=== PATIENT | male | born 1960 | race Caucasian/White ===

== ENCOUNTER 2016-12-23 15:29 | Emergency (ER) | payer BC ==
[~2016-12-23] VITALS: Ht 177.8 cm; Wt 121.0 kg
[2016-12-23 15:54] VITALS: BP 136/67; PULSE 83; RESP 16; TEMP 99.5; O2SAT 98
[2016-12-23] MEDS ORDERED: SODIUM CHLORIDE 0.9% FLUSH 5 ML FLUSH IVF PRN (16:15)
[2016-12-23] MEDS ORDERED: TETANUS/DIPHTHERIA TOXOID ADULT 0.5 ML VIAL IM ONE (16:15)
--- NOTE | 2016-12-23 16:15 | PD ---
HPI . Syncope Chief Complaint: Syncope/Near-Syncope Time Seen by Provider: 15:57 Travel History International Travel<30 days: No Contact w/Intl Traveler<30days: No Traveled to known affect area: No History of Present Illness HPI Patient presents to us from an urgent care center for evaluation of syncope. Patient states that he had the onset of cold symptoms about 3 days ago. He has nasal congestion. He states that he had a paroxysmal of coughing today which was followed by a syncopal event. He fell approximately 3 feet onto his head. When he came to, he discovered that he had an injury to his head and epistaxis. He had a bruise around his left eye. He states that he later called his daughter who is a nurse who instructed him to seek medical care. He subsequently went to urgent care and was referred to us for more extensive evaluation. The patient denies any chest pain or shortness of breath. He has not had any blurred vision or nausea since the injury. He states that his head feels sore. He does not know the date of his last tetanus shot. PFSH Past Medical History Depression: Yes Cardiovascular Problems: Yes (HTN) Hypertension: Yes Social History Tobacco Use: No Allergies-Medications (Allergen,Severity, Reaction): Coded Allergies: No Known Allergies (Unverified , 12/23/16) Reported Meds & Prescriptions Reported Meds & Active Scripts Active Reported Celexa (Citalopram Hydrobromide) 20 Mg Tab 20 Mg PO DAILY Lisinopril 5 Mg Tab 5 Mg PO DAILY Review of Systems Except as stated in HPI: all other systems reviewed are Neg General / Constitutional: No: Fever, Chills Eyes: No: Blurred Vision, Drainage, Redness HENT: Positive: Lightheadedness, Rhinorrhea, Congestion, Nosebleed Cardiovascular: Positive: Syncope, No: Chest Pain or Discomfort Respiratory: Positive: Cough, No: Shortness of Breath Gastrointestinal: No: Nausea, Vomiting, Diarrhea Skin: No Rash Neurologic: Positive: Syncope, Headache, No: Focal Abnormalities Physical Exam Narrative GENERAL: Healthy-appearing man who is in no acute distress. SKIN: Warm and dry. He has a large abrasion/skin tear on the vertex of the scalp. HEAD: Atraumatic. Normocephalic. No significant swelling of the scalp. EYES: Pupils equal and round. Extraocular movements are intact. There is some bruising to the left upper eyelid. ENT: No nasal bleeding or discharge. Mucous membranes pink and moist. Nasal turbinates are swollen and erythematous. Throat had some postnasal drip. And bilateral TMs have fluid behind them. Please ENT findings were reported by urgent care. NECK: Trachea midline. Neck is supple. No cervical lymphadenopathy. CARDIOVASCULAR: Regular rate and rhythm. Heart sounds are normal. RESPIRATORY: No accessory muscle use. Lungs are clear with full air movement throughout. GASTROINTESTINAL: Abdomen soft, non-tender, nondistended. MUSCULOSKELETAL: No obvious deformities. No edema. NEUROLOGICAL: Awake and alert. No obvious cranial nerve deficits. Motor grossly within normal limits. Normal speech. PSYCHIATRIC: Appropriate mood and affect; insight and judgment normal. Data Data Last Documented VS Vital Signs Date Time Temp Pulse Resp B/P Pulse Ox O2 Delivery O2 Flow Rate FiO2 12/23/16 18:03 16 12/23/16 16:20 98 Room Air 12/23/16 16:15 80 12/23/16 15:54 99.5 136/67 Orders Basic Metabolic Panel (Bmp) (12/23/16 16:06) Complete Blood Count With Diff (12/23/16 16:06) Ckmb (Isoenzyme) Profile (12/23/16 16:06) Troponin I (12/23/16 16:06) Ct Brain W/O Iv Contrast(Rout) (12/23/16 16:06) Ecg Monitoring (12/23/16 16:06) Iv Access Insert/Monitor (12/23/16 16:06) Oximetry (12/23/16 16:06) Sodium Chloride 0.9% Flush (Ns Flush) (12/23/16 16:15) Tetanus/Diphtheria Tox Adult (Tetanus/Di (12/23/16 16:15) D-Dimer (12/23/16 16:06) CKMB (12/23/16 16:25) CKMB% (12/23/16 16:25) Ct Facial Bones W/O Iv Cont (12/23/16 16:56) Ct Pulmonary Angiogram (12/23/16 16:56) Iodixanol 320 Inj (Rad Ct) (Visipaque 32 (12/23/16 18:36) Labs Laboratory Tests Test 12/23/16 16:25 White Blood Count 4.3 TH/MM3 Red Blood Count 5.19 MIL/MM3 Hemoglobin 14.9 GM/DL Hematocrit 45.4 % Mean Corpuscular Volume 87.6 FL Mean Corpuscular Hemoglobin 28.7 PG Mean Corpuscular Hemoglobin 32.8 % Concent Red Cell Distribution Width 13.0 % Platelet Count 136 TH/MM3 Mean Platelet Volume 9.4 FL Neutrophils (%) (Auto) 61.6 % Lymphocytes (%) (Auto) 19.2 % Monocytes (%) (Auto) 16.6 % Eosinophils (%) (Auto) 0.4 % Basophils (%) (Auto) 2.2 % Neutrophils # (Auto) 2.7 TH/MM3 Lymphocytes # (Auto) 0.8 TH/MM3 Monocytes # (Auto) 0.7 TH/MM3 Eosinophils # (Auto) 0.0 TH/MM3 Basophils # (Auto) 0.1 TH/MM3 CBC Comment DIFF FINAL Differential Comment D-Dimer Quantitative (PE/DVT) 1.17 MG/L FEU Sodium Level 139 MEQ/L Potassium Level 3.7 MEQ/L Chloride Level 102 MEQ/L Carbon Dioxide Level 27.3 MEQ/L Anion Gap 10 MEQ/L Blood Urea Nitrogen 11 MG/DL Creatinine 1.70 MG/DL Estimat Glomerular Filtration 42 ML/MIN Rate Random Glucose 110 MG/DL Calcium Level 8.0 MG/DL Total Creatine Kinase 154 U/L Creatine Kinase MB LESS THAN 0.5 NG/ML Troponin I LESS THAN 0.02 NG/ML MDM Medical Decision Making Medical Screen Exam Complete: Yes Emergency Medical Condition: Yes Medical Record Reviewed: Yes (patient has no previous records here.) Interpretation(s) EKG shows a sinus rhythm with no ST segment elevation or depression. Differential Diagnosis My differential diagnosis of syncope includes but is not limited to cardiac arrhythmia, hypovolemia, anemia, neurological catastrophe, vasovagal response. This patient also needs to be evaluated for possible head injury. Narrative Course Patient presents from an urgent care for the evaluation of the syncopal event which led to a head injury. He also has cold symptoms. I have queried [employer] regarding the disposition of this patient who had a syncopal event following a paroxysmal coughing. Reflex syncope is a benign cause of syncope. He can be discharged if his workup is negative. CBC & BMP Diagram 12/23/16 16:25 Cardiac enzymes are negative. D-dimer was elevated at 1.[address] for PE. Last Impressions Maxillofacial CT 12/23/16 165 Signed Impressions: Service Date/Time: Friday, December 23, 2016 18:06 - CONCLUSION: Left periorbital soft tissue swelling without evidence of acute fracture or orbital content injury. Fluid accumulation in left maxillary sinus. Otherwise intact facial bones. Chip Loya MD CT Angiography 12/23/16 1656 Signed Impressions: Service Date/Time: Friday, December 23, 2016 18:12 - CONCLUSION: No evidence of acute PE or acute process. 6 mm right upper lobe pulmonary nodule; 6 month followup recommended. Left hilar armaan calcification consistent with prior granulomatous disease. Hepatic steatosis Chip Loya MD Head CT 12/23/16 1606 Signed Impressions: Service Date/Time: Friday, December 23, 2016 16:32 - CONCLUSION: Normal examination of the intracranial portion of the exam. The fluid within the left maxillary sinus possible hemorrhage with some overlying soft tissue swelling. Facial bone CT scan may be helpful since we did not completely evaluate the inferior orbital rim on the left. David Harp MD CT of facial bones CONCLUSION: Left periorbital soft tissue swelling without evidence of acute fracture or orbital content injury. Diagnosis Primary Impression: Syncope Qualified Code: R55 - Vasovagal syncope Additional Impressions: Scalp contusion Periorbital contusion of left eye Qualified Code: S05.12XA - Periorbital contusion of left eye, initial encounter Upper respiratory infection Qualified Code: J06.9 - Viral upper respiratory tract infection Patient Instructions: General Instructions, Syncope (DC) Additional Instructions: I recommend the use of a Neti Pot. You may use a nasal spray such as Afrin for up to 3 days as needed for nasal congestion. You may take an thdj-nwa-kukdszs antihistamine such as Zyrtec, Vannesa or Claritin as needed for runny secretions. You may take pseudoephedrine as needed for congestion. You will need to sign for this at the pharmacy. You may take plain Mucinex, 1200 mg twice a day as needed for thick secretions. You may take a cough syrup such as Delsym as needed for cough. Motrin as needed for fever and body aches. Throat lozenges/sprays as needed for sore throat. Warm salt water gargles for sore throat. Hot tea with lemon and honey also helps soothe a sore throat. Follow-up with her primary care doctor in 6 months for further evaluation spots seen on your chest CT. Disposition: 01 DISCHARGE HOME Condition: Stable Michelle Cook MD Dec 23, 2016 16:15
[2016-12-23 16:20] VITALS: RESP 16; O2SAT 98
[2016-12-23 16:38] LABS: AUTOMATED NEUTROPHIL # 2.7 TH/MM3 (1.8-7.7); BASOPHIL # 0.1 TH/MM3 (0-0.2); BASOPHIL % 2.2 % (0.0-2.0); EOSINOPHIL % 0.4 % (0.0-4.0); HEMATOCRIT 45.4 % (39.0-51.0); HEMO FLAGS DIFF FINAL; LYMPH % 19.2 % (9.0-44.0); LYMPHOCYTE # 0.8 TH/MM3 (1.0-4.8); MEAN CELL VOLUME 87.6 FL (80.0-100.0); MEAN CORPUSCULAR HEMOGLOBIN 28.7 PG (27.0-34.0); MEAN CORPUSCULAR HGB CONC 32.8 % (32.0-36.0); MONO % 16.6 % (0.0-8.0); NEUT % 61.6 % (16.0-70.0); PLATELET COUNT 136 TH/MM3 (150-450); RED BLOOD COUNT 5.19 MIL/MM3 (4.50-5.90); WHITE BLOOD COUNT 4.3 TH/MM3 (4.0-11.0)
[2016-12-23] MEDS ORDERED: CELE20TA PO (16:41)
[2016-12-23] MEDS ORDERED: LISI-519 PO (16:41)
[2016-12-23 16:46] LABS: CHLORIDE 102 MEQ/L (98-107); POTASSIUM 3.7 MEQ/L (3.5-5.1); SODIUM (NA) 139 MEQ/L (136-145)
[2016-12-23 16:49] LABS: ANION GAP 10 MEQ/L (5-15); BICARBONATE 27.3 MEQ/L (21.0-32.0); BLOOD UREA NITROGEN 11 MG/DL (7-18)
--- NOTE | 2016-12-23 16:50 | RADHPO ---
EXAM DATE/TIME: 12/23/2016 16:32 [facility] COMPARISON: No previous studies available for comparison. INDICATIONS : Trauma. Syncopal episode. Laceration top of head. RADIATION DOSE: 59.20 CTDIvol (mGy) MEDICAL HISTORY : Hypertension. SURGICAL HISTORY : None. ENCOUNTER: Initial ACUITY: 1 day PAIN SCALE: 5/10 LOCATION: occipital TECHNIQUE: Multiple contiguous axial images were obtained of the head. Using automated exposure control and adj ustment of the mA and/or kV according to patient size, radiation dose was kept as low as reasonably a chievable to obtain optimal diagnostic quality images. FINDINGS: CEREBRUM: The ventricles are normal for age. No evidence of midline shift, mass lesion, hemorrhage or acute in farction. No extra-axial fluid collections are seen. POSTERIOR FOSSA: The cerebellum and brainstem are intact. The 4th ventricle is midline. The cerebellopontine angle i s unremarkable. EXTRACRANIAL: The visualized portion of the orbits is intact. Air-fluid level left maxillary sinus SKULL: The calvaria is intact. No evidence of skull fracture. CONCLUSION: Normal examination of the intracranial portion of the exam. The fluid within the left maxillary sinus possible hemorrhage with some overlying soft tissue swelling. Facial bone CT scan may be helpful sin ce we did not completely evaluate the inferior orbital rim on the left. David Harp MD on December 23, 2016 at 16:47 Board Certified Radiologist. This report was verified electronically.
[2016-12-23 16:52] LABS: GLOMERULAR FILTRATION RATE 42 ML/MIN (>89)
[2016-12-23 16:56] LABS: CREATINE KINASE 154 U/L (39-308)
[2016-12-23 17:08] LABS: CKMB LESS THAN 0.5 NG/ML (0.5-3.6)
[2016-12-23] MEDS ORDERED: IODIXANOL 320 MG/ML 10 ML VIAL (for Rad CT) IV ONE (18:36)
--- NOTE | 2016-12-23 18:45 | RADHPO ---
EXAM DATE/TIME: 12/23/2016 18:12 [facility] COMPARISON: No previous studies available for comparison. INDICATIONS : Evaluate for embolism. IV CONTRAST: 50 cc Visipaque (iodixanol) IV RADIATION DOSE: 21.78 CTDIvol (mGy) MEDICAL HISTORY : Hypertension. SURGICAL HISTORY : None. ENCOUNTER: Initial ACUITY: 1 day PAIN SCALE: 5/10 LOCATION: chest TECHNIQUE: Volumetric scanning of the chest was performed using a pulmonary embolism protocol MIP images were re constructed. Using automated exposure control and adjustment of the mA and/or kV according to patien t size, radiation dose was kept as low as reasonably achievable to obtain optimal diagnostic quality images. FINDINGS: PULMONARY ARTERIES: No filling defects are seen in the pulmonary arteries through the segmental level. LUNGS: A 6 mm noncalcified nodule is identified in the right midlung within the upper lobe along the interlo bar fissure. Lungs are otherwise clear. PLEURAE: There is no pleural thickening or pleural effusion. MEDIASTINUM: Calcified nodes are identified in the left hilum. Mediastinal structures are otherwise unremarkable. MUSCULOSKELETAL: Within normal limits for patient age. MISCELLANEOUS: Liver is diffusely hypodense. CONCLUSION: No evidence of acute PE or acute process. 6 mm right upper lobe pulmonary nodule; 6 month followup recommended. Left hilar armaan calcification consistent with prior granulomatous disease. Hepatic steatosis Chip Loya MD on December 23, 2016 at 18:40 Board Certified Radiologist. This report was verified electronically.
--- NOTE | 2016-12-23 18:49 | RADHPO ---
EXAM DATE/TIME: 12/23/2016 18:06 [facility] COMPARISON: No previous studies available for comparison. INDICATIONS : Trauma. Syncopal episode. Left orbital swelling and bruising. RADIATION DOSE: 29.99 CTDIvol (mGy) MEDICAL HISTORY : Hypertension. SURGICAL HISTORY : None. ENCOUNTER: Initial ACUITY: 1 day PAIN SCORE: 5/10 LOCATION: Left facial TECHNIQUE: Volumetric scanning of the facial bones was performed. Using automated exposure control and adjustme nt of the mA and/or kV according to patient size, radiation dose was kept as low as reasonably achiev able to obtain optimal diagnostic quality images. FINDINGS: ORBITS: Significant left-sided periorbital soft tissue swelling is noted. The orbital and infraorbital osseou s structures are intact. The retroconal structures have a normal configuration. No radiopaque forei gn bodies are seen. NASAL BONE: The nasal bone and maxillary spine are intact ZYGOMATIC ARCHES: Symmetric without evidence of fracture. SINUSES: The left maxillary sinus is partially opacified and contains an air-fluid level. Paranasal sinuses ot herwise are clear. NASAL CAVITY: The nasal septum is intact and midline. The lacrimal ducts are intact. SOFT TISSUES: No radiopaque foreign bodies seen. INTRACRANIAL: No intracranial air seen. CRIBIFORM PLATE: Grossly intact. CONCLUSION: Left periorbital soft tissue swelling without evidence of acute fracture or orbital content injury. Fluid accumulation in left maxillary sinus. Otherwise intact facial bones. Chip Loya MD on December 23, 2016 at 18:44 Board Certified Radiologist. This report was verified electronically.
[2016-12-23 19:16] VITALS: BP 130/68
--- NOTE | 2016-12-24 11:10 | EKG ---
Date Performed: 12/23/2016 Time Performed: 15:59:52 PTAGE: 56 years EKG: Sinus rhythm Normal ECG NO PREVIOUS TRACING DOCTOR: David Anand Interpretating Date/Time 12/24/2016 11:08:24
== END 2016-12-23 19:21 | disposition home or self-care (01) ==
LOC: PHED 15:29
DX: R55 Syncope and collapse (principal); S00.03XA Contusion of scalp, initial encounter; S00.12XA Contusion of left eyelid and periocular area, initial encounter; J06.9 Acute upper respiratory infection, unspecified; R05 Cough; R04.0 Epistaxis; I10 Essential (primary) hypertension; Z23 Encounter for immunization; W01.10XA Fall on same level from slipping, tripping and stumbling with subsequent striking against unspecified object, initial encounter
CPT/HCPCS: 70450; 70486; 71275; 80048; 82550; 82552; 84484; 85025; 85379; 90471; 90714; 93005; 99284; Q9967